=== PATIENT | male | born 1970 | race Two or more races ===

== ENCOUNTER 2018-10-25 09:19 | Emergency (ER) | payer SELFPAY ==
[~2018-10-25] VITALS: Ht 175.3 cm; Wt 100.7 kg
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
[2018-10-25] MEDS ORDERED: IBUPROFEN 400 MG TABLET ONE ×2 (09:40→09:47)
--- NOTE | 2018-10-25 09:50 | NUR ---
[employer] OFFICER AT BEDSIDE.
[2018-10-25] MEDS ORDERED: IBUPROFEN 400 MG TABLET PO ONE (10:00)
--- NOTE | 2018-10-25 10:32 | NUR ---
DR. DICKERSON AWARE OF ELEVATED BP, PER , MONITOR AT THIS TIME. Addendum: 10/25/18 at 1033 by MOHSEN PATIENT STATED HE TOOK HIS SCHEDULED BP MEDICATIONS AT HOME.
--- NOTE | 2018-10-25 10:40 | NUR ---
MD AWARE OF CURRENT BLOOD PRESSURE, PATIENT STATED HE WILL MANAGE IT AT HOME.
--- NOTE | 2018-10-25 10:48 | NUR ---
PATIENT DENIES PAIN AT THIS TIME. Ambulatory with a steady gait. Patient discharged to home in stable condition. Written and verbal after care instructions given. Patient verbalizes understanding of instruction.
[2018-10-25 10:49] VITALS: BP 179/100
== END 2018-10-25 11:02 | disposition home or self-care (01) ==
LOC: ER 09:22
DX: S39.012A Strain of muscle, fascia and tendon of lower back, initial encounter (principal); S50.311A Abrasion of right elbow, initial encounter; I10 Essential (primary) hypertension; Z98.890 Other specified postprocedural states; V49.9XXA Car occupant (driver) (passenger) injured in unspecified traffic accident, initial encounter; Y93.89 Activity, other specified; Y92.488 Other paved roadways as the place of occurrence of the external cause; Y99.8 Other external cause status
CPT/HCPCS: 71045-TC; 72100-TC; 73070-TC